=== PATIENT | female | born 1980 | race Caucasian/White ===

== ENCOUNTER → 2016-02-23 | Outpatient (CLI) | payer BC ==
--- NOTE | 2016-02-23 11:06 | US ---
Dear Dr. Billingsley, Thank you for sending your patient, Geetha Sky, to us for a follow-up US to assess interval g rowth. As you know, the patient is a 35 y.o. G2, P1001 at 30 weeks and 0 days with an EDC of 05/03/16 based on LMP and 8 week US. Her is complicated by a fetus with a single umbilical artery. Genetic Screening: Reassuring NIPT results (46XX) The patient denies any uterine contractions, vaginal bleeding, or loss of fluid. She reports excellen t movement. Today, she is without complaints. US FINDINGS: Number of fetuses: 1 Placental location: Anterior fundal, no previa presentation: Cephalic Cervix: 3.8 cm, transabdominally MVP: 3.4 cm Measurements: Biparietal diameter: 78 mm, 31 weeks 3 days Head circumference: 278 mm, 30 weeks 5 days Abdominal circumference: 282 mm, 32 weeks 2 days Femur length: 59 mm, 31 weeks 0 days Humerus length: 51 mm, 29 weeks 5 days Transcerebellar diameter: 38 mm, 31 weeks 0 days Cerebral Lateral Ventricle: 4 mm Cisterna Magna: 5 mm Heart Rate: 153 bpm Average ultrasound age: 31 weeks 3 days Estimated weight: 1801 g weight percentile: 89% Anatomy: anatomy was previously assessed. Today the following structures were visualized and appeared n ormal: lateral ventricles, posterior fossa, 4CH view and outflow tracts, stomach, kidneys, and bladde r. The SVC/IVC, sacral spine, and hands were not previously seen. Today, we were able to visualize the SVC/IVC as normal, but views of the sacral spine and hands remained limited. However, the locks tender ior fossa continues to appear normal which excludes >95% of spine cord defects. IMPRESSION: 1. Growth: The fetus measures appropriate for gestational age, measuring at a normal weight and perc entile. Visualization of the fetus today reveals no overt structural anomalies. There is evidence of normal amniotic fluid, and movement was seen during the examination. 2. Single Umbilical Artery: Today, the fetus is well grown without evidence of growth restriction. Vi ews of the heart and kidneys continue to appear reassuring for the absence of congenital renal or cardiac anomalies. Additionally, these structures were previously cleared at the time of the anato alejandra survey. The patient also had reassuring NIPT results which dramatically decreases the risk of com mon aneuploidies. - No further US assessment is indicated unless new clinical concerns develop Thank you again for sending this patient to see us today. Approximately 15 minutes were spent with th is patient today with 12 minutes of this time spent in direct face to face counseling regarding today 's US findings and our recommendations. Please contact me with any questions at . Ibis Chiang MD Maternal- Medicine
--- NOTE | 2016-02-23 13:52 | US ---
Follow Up Obstetrical Sonography Clinical History: 35-year-old female with a fetus with a known single umbilical artery, presenting fo r follow up of growth parameters. Technique: A curvilinear 5 MHz transducer was used to sonographically evaluate the fetus and placenta . M-mode Doppler is used. Dr. Ibis Chiang was present. Comparison Study: Obstetrical sonography, dated January 05, 2016. LMP: July 28, 2015, indicating an age of 30 weeks 0 days, and an estimated date of delivery of April 182016. Findings: Again, there is single viable intrauterine gestation. The fetus is currently vertex in pres entation. The placenta is anterior-fundal in location, and there is no previa. The maternal cervical length measures 3.8 cm, viewed transabdominally. The amniotic fluid volume is appropriate, with a max imal vertical pocket of 3.4 cm. The heart rate is 153 beats per minute. A anatomic survey has been performed in the past and on today's study, the supratentorial and i nfratentorial structures appear normal. The lateral ventricular diameter is 3.9 mm, and the cisterna magna is 4.9 mm. A four-chambered heart with interventricular septum, ductus arch, and inflow and out flow tracts are identified. The stomach, right and left kidneys, and the urinary bladder are seen. Th e sagittal facial profile appears normal. There is limited assessment of the hands and of the s acral spine. The gender is female (image 51). biometry is as follows: Biparietal diameter is 78 mm, corresponding to an age of 31 weeks 3 days +/- 3 weeks 1 day, which is at the 80th percentile. The head circumference is 280 mm, corresponding to an age of 30 weeks 5 days +/- 3 weeks 0 days, whic h is at the 33rd percentile. The abdominal circumference is 282 mm, corresponding to an age of 32 weeks 2 days +/- 3 weeks 0 days, which is at the 95th percentile. The femur length is 59 mm, corresponding to an age of 31 weeks 0 days +/- 3 weeks 0 days, which is at the 61st percentile. The humeral length is 51 mm, corresponding to an age of 29 weeks 5 days, and the transcerebellar diam eter is 38 mm, corresponding to an age of 31 weeks 0 days +/- 1 week 2 days for a composite gestation al age of 31 weeks 3 days. The estimated weight is 1801 grams +/- 263 grams, which is 4 pounds 0 ounces +/- 9 ounces, whic h is at the 89th percentile. As a point of reference, on the prior study, the fetus was at the 85th p ercentile. The head circumference to abdominal circumference ratio is normal, measuring 0.99. The femur length t o biparietal diameter ratio is 76% which is within normal range, and the femur length to abdominal ci rcumference ratio is also within normal range measuring 21%. Impression: There is a single viable intrauterine gestation with concordant biometry and appropriate interval growth since January 05, 2016. The fetus has a known single umbilical artery, although no o ther overt structural anomaly is seen. Please also refer to Dr. Chiang's separate assessments and specific recommendations for follow up.
== END ==
LOC: FIMAGING 09:21
PROVIDERS: ATTEND Obstetrics & Gynecology
DX: O36.8930 Maternal care for other specified fetal problems, third trimester, not applicable or unspecified (principal); Z3A.30 30 weeks gestation of pregnancy

== ENCOUNTER 2016-05-07 06:10 | Inpatient (IN) | payer BC ==
[2016-05-07] MEDS ORDERED: LR 1,000 ML IV PRN (06:37)
[2016-05-07] MEDS ORDERED: EPSOM SALT 454 GM TP PRN (06:37)
[2016-05-07] MEDS ORDERED: LIDOCAINE 1% 30 ML SDV SC PRN (06:37)
[2016-05-07] MEDS ORDERED: OXYTOCIN/RINGERS LACTATE 1,000 ML IV PRN (06:37)
[2016-05-07] MEDS ORDERED: TERBUTALINE SULFATE 1 MG/ML VIAL IV PRN (06:37)
[2016-05-07] MEDS ORDERED: OLIVE OIL 118 ML BTL MISC PRN (06:37)
[2016-05-07 06:47] LABS: % IMMATURE GRANULYOCYTES 0.2 % (0.0-1.1); ABSOLUTE IMMATURE GRANULOCYTES 0.01 10^3/uL (0.00-0.10); ADD DIFF? NO; ADD MORPH? NO; ADD SCAN? NO; ATYPICAL LYMPHOCYTE FLAG 0 (0-99); FRAGMENT RBC FLAG 0 (0-99); HEMATOCRIT 38.6 % (38.0-47.0); LEFT SHIFT FLG 0 (0-99); LIPEMIA HEMOLYSIS FLAG 80 (0-99); MEAN CELL HEMOGLOBIN 30.9 pg (27.9-34.1); MEAN CELL HEMOGLOBIN CONCENTR. 33.7 g/dL (32.4-36.7); MEAN CELL VOLUME 91.7 fL (81.5-99.8); MEAN PLATELET VOLUME 10.9 fL (8.7-11.7); PLATELET CLUMPS FLAG 10 (0-99); PLATELET COUNT 176 10^3/uL (150-400); RED BLOOD CELL COUNT 4.21 10^6/uL (4.18-5.33); RED CELL DISTRIBUTION WIDTH 12.5 % (11.5-15.2)
[2016-05-07] MEDS ORDERED: MISOPROSTOL 200 MCG TAB ONE (07:22)
[2016-05-07] MEDS ORDERED: AMMONIA AROMATIC 1 EACH AMP IH ONE (07:23)
[2016-05-07] MEDS ORDERED: OXYTOCIN/LR *STANDARD DOSE PROTOCOL IV SCH (07:30)
--- NOTE | 2016-05-07 09:05 | OBPROG ---
OBG Progress Note Assessment/Plan: Assessment: 35 yo @ 40 4/7, IOL for postdates, elective Plan: 05/07/16 09:03 FWB reassuring. GBS neg. Desires epidural. Expect . Subjective: 35 yo @ 40 4/7, IOL for postdates, elective Objective: 05/07/16 06:40 Patient ABO/Rh O NEGATIVE 05/07/16 06:40 114/69 63 37.1 - SVE Dilation (cm): 3 Effacement (%): 50 Station: -1 Current Contraction Pattern: Regular FHR (bpm): 140 FHR Pattern Variability: Moderate FHR Category: 2 Membranes: AROM Amniotic Fluid Color: Clear ICD10 Worksheet Patient Problems: Problems Problem Status Onset Elective induction of labor planned Acute
[2016-05-07] MEDS ORDERED: fentaNYL 2MCG/ML/BUP 0.1% RTU 100 ML BAG EP ONE (09:07)
[2016-05-07] MEDS ORDERED: BUPIVACAINE 0.25% 30 ML SDV ONE (09:07)
[2016-05-07] MEDS ORDERED: PHENYLEPHRINE HCL 100 MCG/ML SYR ONE (09:07)
[2016-05-07] MEDS ORDERED: fentaNYL 100 MCG/2 ML INJ ONE (09:08)
[2016-05-07] MEDS ORDERED: PHENYLEPHRINE HCL 100 MCG/ML SYR IVP PRN (12:43)
[2016-05-07] MEDS ORDERED: ONDANSETRON 4 MG/2 ML VIAL IVP PRN (12:43)
--- NOTE | 2016-05-07 12:46 | POSTANESTH ---
Post Anesthetic Evaluation Cardiovascular Status: Normal, Stable Respiratory Status: Normal, Stable, Similar to Pre-op Cond. Level of Consciousness/Mental Status: Can Participate in Eval, Alert and Oriented Pain Control: Adequate, Prn Tx Ordered Nausea/Vomiting Control: Adequate, Prn Tx Ordered Complications Possibly Related to Anesthesia: None Noted (Tolerated well, stable , comfortable.)
--- NOTE | 2016-05-07 12:50 | PREANESOB ---
Obstetric Pre-Anesthesia Info - General Info Proposed Procedure: Labor and delivery with pitocin. : 2 Para: 1 WBD: 40 - Info Status: Full Term Monitors: External FHR Baseline (bpm): 135 FHR Pattern: Reassuring - Labor Status Cervical Dilation per last OB SVE: 3 Station per last OB SVE: -1 Amniotic Fluid Color: Clear Pitocin: In Use Indications for Labor Analgesia: Induction of Labor, Pain Control Labor Epidural: Proposed Anesthesia ROS: Prior labor epidural. Allergies/Adverse Reactions: Allergy/AdvReac Type Severity Reaction Status Date / Time shellfish derived Allergy Verified 05/07/16 06:39 Home Medications: Medication Instructions Recorded 1 tab PO DAILY 05/07/16 Visit Medications: Generic Name Dose Route Start Last Admin Trade Name Freq PRN Reason Stop Dose Admin Diphenhydramine HCl 25 - 50 mg 05/07/16 12:43 Benadryl Injection IVP 11/03/16 12:42 Q6HRS PRN Itching Lactated Ringer's 1,000 mls @ 0 mls/hr 05/07/16 06:37 05/07/16 06:45 Lr IV 11/03/16 06:36 1,000 mls PRN PRN Administration SEE PROTOCOL CONDITIONS Protocol Per Protocol Oxytocin/Lactated Ringer's 1,000 mls @ 150 mls/hr 05/07/16 06:37 Pitocin 20 Units/Lr (Premix) IV PRN PRN Post- bleeding Oxytocin/Lactated Ringer's 500 mls @ 0 mls/hr 05/07/16 07:30 05/07/16 07:47 Pitocin 30 Units/Lr (Premix) IV 11/03/16 07:29 500 mls CONT CATHY Administration Protocol Per Protocol Fentanyl/Bupivacaine HCl 100 mls @ 0 mls/hr 05/07/16 13:00 Fentanyl/Bupivacaine/Ns 2 Mcg/Ml 0.1% (Premix EP 05/17/16 12:59 CONT CATHY Protocol As Directed Lactated Ringer's 500 mls @ 0 mls/hr 05/07/16 13:00 Lr IV 11/03/16 12:59 CONT CATHY As Directed Ibuprofen 600 mg 05/07/16 06:37 Motrin PO 11/03/16 06:36 Q6HRS PRN post , inflammation Lidocaine HCl 30 ml 05/07/16 06:37 Lidocaine Hcl 1% SC 11/03/16 06:36 ONCE PRN Episiotomy Magnesium Sulfate 454 gm 05/07/16 06:37 Epsom Salt TP 11/03/16 06:36 PRN PRN perineal discomfort Fleming Oil 118 ml 05/07/16 06:37 Sweet Oil MISC 11/03/16 06:36 ONCE PRN preneal massage Ondansetron HCl 4 mg 05/07/16 12:43 Zofran IVP 11/03/16 12:42 Q4HRS PRN Nausea/Vomiting, Can't Take PO Phenylephrine HCl 100 mcg 05/07/16 12:43 Travon-Synephrine IVP 11/03/16 12:42 .Q2M PRN Hypotension Terbutaline Sulfate 0.25 mg 05/07/16 06:37 Brethine IV 11/03/16 06:36 ONCE PRN Tachysystole Discontinued Medications Generic Name Dose Route Start Last Admin Trade Name Freq PRN Reason Stop Dose Admin Ammonia (Aromatic Spirit) Confirm 05/07/16 07:23 Ammonia Aromatic Administered 05/07/16 07:24 Dose 1 each IH .STK-MED ONE Bupivacaine HCl Confirm 05/07/16 09:07 Sensorcaine 0.25% Sdv Administered 05/07/16 09:08 Dose 30 ml .ROUTE .STK-MED ONE Fentanyl Confirm 05/07/16 09:08 Sublimaze Administered 05/07/16 09:09 Dose 100 mcg .ROUTE .STK-MED ONE Fentanyl/Bupivacaine HCl Confirm 05/07/16 09:07 Fentanyl/Bupivacaine/Ns 2 Mcg/Ml 0.1% (Premix Administered 05/07/16 09:08 Dose 100 ml EP .STK-MED ONE Misoprostol Confirm 05/07/16 07:22 Cytotec Administered 05/07/16 07:23 Dose 1,000 mcg .ROUTE .STK-MED ONE Phenylephrine HCl Confirm 05/07/16 09:07 Travon-Synephrine Administered 05/07/16 09:08 Dose 1,000 mcg .ROUTE .STK-MED ONE - Anesthesia History Response to Local Anesthetics: Normal Anesthesia & Operative History: No Prior Problems - Social History Substance Use/Abuse: Denies - Focused Exam Blood Pressure: 114/69 Heart Rate: 78 Respiratory Rate: 18 Height/Weight (Nursing): Height 175.26 cm Weight 83.007 kg Physical Exam: Within normal limits. ASA Status: II Labs: 05/07/16 06:40 Patient ABO/Rh O NEGATIVE 05/07/16 06:40 - Plan Anesthetic Plan: CSE Consent Signed and on Chart: Yes Patient/Guardian Understands and Agrees to Plan: Yes
[2016-05-07] MEDS ORDERED: fentaNYL 2MCG/ML/BUP 0.1% RTU 100 ML EP SCH (13:00)
[2016-05-07] MEDS ORDERED: LR 500 ML IV SCH (13:00)
[2016-05-07] MEDS ORDERED: CEFAZOLIN 2 GM/DEXTROSE/100 ML BAG IV ONE (13:23)
[2016-05-07] MEDS: ceFAZolin 2 GM/DEXTROSE 100 ML IV SCH ×2 (13:40→22:19)
[2016-05-07] MEDS: IBUPROFEN 600 MG TAB PO PRN ×2 (14:02→19:46)
[2016-05-07] MEDS ORDERED: HYDROCORTISONE 0.5% CREAM TP PRN (18:06)
[2016-05-07] MEDS ORDERED: HYDROCODONE/APAP 5/325 TAB PO PRN (18:06)
[2016-05-07] MEDS ORDERED: SIMETHICONE 80 MG TAB CHEW PO PRN (18:06)
--- NOTE | 2016-05-07 18:10 | OBPROC ---
- Labor and Delivery Onset of Contractions Date: 05/07/16 Onset of Contractions Time: 08:00 Onset of Contractions Type: Induced Rupture of Membranes Date: 05/07/16 Rupture of Membranes Time: 09:00 Rupture of Membranes Type: Artificial Amniotic Fluid Color: Clear Dilation Complete Time: 12:30 Delivery Type: Spontaneous Placenta Delivery Date: 05/07/16 Episiotomy/Laceration: 2nd Degree Repair: 3-0, Vicryl EBL: 300 ml Complications: Other (Specify) (retained placenta requiring manual extraction, US confirms no retained POCs) - Medications Anesthesia: Epidural - Info A Delivery Date: 05/07/16 Sex of Infant: Female Score (1 Min): 8 Score (5 Min): 9
[2016-05-07] MEDS: DOCUSATE SODIUM 100 MG CAP PO PRN (19:46)
[2016-05-08] MEDS: IBUPROFEN 600 MG TAB PO PRN ×4 (05:28→23:34)
[2016-05-08] MEDS: ceFAZolin 2 GM/DEXTROSE 100 ML IV SCH (06:02)
--- NOTE | 2016-05-08 07:40 | SOAPPROG ---
SOAP Progress Note Assessment/Plan: Assessment: 35 y.o. s/p PPD#1 recovering well with good pain control. well. Good support system. Plan: Routine care and orders. consult PRN. Anticipate discharge tomorrow. 05/08/16 07:37 Subjective: Reports doing well with good pain control. infant well. Minimal vaginal bleeding. Has been out of bed and ambulating without vertigo. Eating and drinking well without nausea or vomiting. Appropriate mood with good support system. Objective: Vital Signs Temp Pulse Resp BP Pulse Ox 36.2 C 63 18 111/68 96 05/07/16 19:35 05/07/16 19:35 05/07/16 19:35 05/07/16 19:35 05/07/16 19:35 Laboratory Results 05/07/16 06:40 05/07/16 05/08/16 05/09/16 05:59 05:59 05:59 Output Total 300 Balance -300 - Time Spent With Patient Time Spent With Patient: 20 minutes - Pending Discharge Pending Discharge Within 24 Hours: Yes Pending Discharge Date: 05/09/16 Pending Discharge Time: 11:00 Physical Exam - Physical Exam General Appearance: WD/WN, alert, no apparent distress EENT: normal ENT inspection Neck: non-tender, full range of motion, normal inspection Respiratory: lungs clear, normal breath sounds Cardiac/Chest: regular rate, rhythm Abdomen: non-tender, soft Pelvic Exam: normal external exam Rectal: deferred Back: Normal inspection Skin: normal color, warm/dry Extremities: normal range of motion, non-tender Neuro/Psych: alert, normal mood/affect, oriented x 3 ICD10 Worksheet Patient Problems: Problems Problem Status Onset Elective induction of labor planned Acute
[2016-05-08] MEDS: DOCUSATE SODIUM 100 MG CAP PO PRN ×2 (08:47→23:34)
[2016-05-08 11:27] VITALS: RESP 16
[2016-05-09] MEDS: IBUPROFEN 600 MG TAB PO PRN ×2 (05:24→12:05)
[2016-05-09 07:53] VITALS: BP 106/65; PULSE 60; TEMP 97.8; O2SAT 94
--- NOTE | 2016-05-09 09:34 | OBGCSDC ---
General Delivery Information - General Info : 2 Para: 2 Labs: Patient ABO/Rh O NEGATIVE 05/07/16 15:50 Hct 38.6 % (38.0-47.0) 05/07/16 06:40 - Info Infant A Sex of : Female Score (1 Min): 8 Score (5 Min): 9 Vaginal - Diagnosis Labor: Induced Rupture of Membranes Type: Artificial Amniotic Fluid Color: Clear Repair: 3-0, Vicryl Complications: Other (Specify) (retained placenta requiring manual extraction, US confirms no retained POCs) - Operations/Procedures Delivery Type: Spontaneous - Hospital Course Antepartum: Scheduled elective induction Intrapartum: : Routine pp care. Pain controlled with motrin. going well. Appropriate lochia. Rh neg, s/p Rhogam. Rub immune. s/p tdap and flu vaccines - Delivery EBL: 300 ml Anesthesia: Epidural Discharge Information - Discharge Information Discharge Medications: Ibuprofen, Other (Specify) (Colace) Condition: Good Instruction/Follow Up: Six Weeks Discharge Physician/CNM: Kellie Kruse
== END 2016-05-09 12:30 | disposition home or self-care (01) | DRG 767 ==
LOC: FLD 06:10 → FOB 15:52
PROVIDERS: ADMIT Midwife; ATTEND Midwife
PROC: 3E033VJ Introduction of Other Hormone into Peripheral Vein, Percutaneous Approach (ICD-10-PCS; principal; 2016-05-07)
PROC: 10E0XZZ Delivery of Products of Conception, External Approach (ICD-10-PCS; principal; 2016-05-07)
PROC: 10D17ZZ Extraction of Products of Conception, Retained, Via Natural or Artificial Opening (ICD-10-PCS; principal; 2016-05-07)
PROC: 0KQM0ZZ Repair Perineum Muscle, Open Approach (ICD-10-PCS; principal; 2016-05-07)
PROC: 10907ZC Drainage of Amniotic Fluid, Therapeutic from Products of Conception, Via Natural or Artificial Opening (ICD-10-PCS; principal; 2016-05-07)
DX: O48.0 Post-term pregnancy (principal); O70.1 Second degree perineal laceration during delivery; O73.0 Retained placenta without hemorrhage; Z3A.40 40 weeks gestation of pregnancy; Z37.0 Single live birth
CPT/HCPCS: J0690; J2370; J2590; J3010; J3105

== ENCOUNTER → 2016-06-27 | Outpatient (CLI) | payer BC | LOC: BMCIMAGING 15:54 | PROVIDERS: ATTEND Obstetrics & Gynecology | DX: N93.9 Abnormal uterine and vaginal bleeding, unspecified (principal) ==

== ENCOUNTER 2016-07-10 16:17 | Emergency (ER) | payer BC ==
[2016-07-10 16:39] VITALS: RESP 16
--- NOTE | 2016-07-10 16:52 | EDPHY ---
HPI/HX/ROS/PE/MDM Narrative: CHIEF COMPLAINT: Abdominal pain HPI: This patient is a 35-year-old nine-weeks post female who presents to the Emergency Department complaining of acute onset abdominal pain beginning this afternoon. On Saturday, she awoke with acute vomiting which persisted throughout the day, improving by Saturday morning. Yesterday, she felt nauseated but did not vomit. Today, after eating lunch, she began to experience moderate, intermittent abdominal pain which she describes as periumbilical and similar to contractions. She reports one loose bowel movement earlier today. She describes associated chills but denies fever or additional complaints. She had a pelvic ultrasound on 06/27 for excessive vaginal bleeding which was normal at that time. She was started on estrogen following that exam. REVIEW OF SYSTEMS: Aside from elements discussed in the HPI, a comprehensive 10-point review of systems was reviewed and is negative. PMH: Denies. SOCIAL HISTORY: Mother of two. PHYSICAL EXAM: General:Patient is alert, in no acute distress. ENT:Eyes are normal to inspection. ENT inspection normal. Neck: Normal inspection. Full range of motion. Respiratory:No respiratory distress. Breath sounds normal bilaterally. Cardiovascular: Regular rate and rhythm. Strong peripheral pulses. Normal cap refill. Abdomen:The abdomen is nontender to palpation. There are no peritoneal signs. There are normal bowel sounds. Back: Normal to inspection. No tenderness to palpation. Skin: Normal color. No rash. Warm and dry. Extremities: Normal appearance. Full range of motion. Neuro: Oriented x3. Normal motor function. Normal sensory function. ED Course: Normally healthy 9-weeks post- 35-year-old female presents with complaint of periumbilical intermittent abdominal pain presenting this afternoon following two days of nausea and vomiting. She is alert and well-appearing at time of presentation. Her abdomen is non-tender. She did have a pelvic/renal US two weeks [employer] for vaginal bleeding which was normal at that time. Will proceed with labs, UA, abdominal x-ray, and pelvic US. The patient declines pain medication at this time. CBC and chemistries obtained and are within normal limits. UA is negative for UTI. 2015: US is normal per Dr. Hernández, radiologist. I discussed lab and imaging results with the patient. She will be discharged home in good condition with instructions to follow-up with her PCP for further evaluation and customary return precautions. MDM: On re-evaluation at 8:00 p.m., the patient states she had a bowel movement and her pain is largely resolved. Her x-ray and ultrasound are unremarkable. Her blood work including CBC is completely unremarkable. I had extensive discussion with her regarding our workup and offered her CT scan of the abdomen and pelvis to rule out appendicitis or other acute abdominal process, despite the fact that I think the likelihood of this is very low. The patient is comfortable declining this test and would like to go home. We discussed strict return precautions. She understands that I am unable to diagnose potentially life- threatening illness without further testing. - Data Points Imaging Results: Imaging Impressions Abdomen X-Ray 07/10/16 17:08 Impression: Air distended colon with air-fluid levels. No evidence for free intraperitoneal air. No evidence for small bowel obstruction. Pelvic/Renal Ultrasound 07/10/16 17:41 Impression: Normal pelvic ultrasound. Findings discussed with Wesley Salvador MD 07/10/2016 at 20:13. Imaging: Discussed imaging studies w/ call box wirer Radiologist, I viewed and interpreted images myself Laboratory Results: Laboratory Results 07/10/16 16:50 07/10/16 16:50 07/10/16 07/10/16 07/10/16 17:15 16:50 16:50 WBC 6.88 10^3/uL 10^3/uL (3.80-9.50) RBC 4.30 10^6/uL 10^6/uL (4.18-5.33) Hgb 13.1 g/dL g/dL (12.6-16.3) Hct 39.7 % % (38.0-47.0) MCV 92.3 fL fL (81.5-99.8) MCH 30.5 pg pg (27.9-34.1) MCHC 33.0 g/dL g/dL (32.4-36.7) RDW 12.3 % % (11.5-15.2) Plt Count 192 10^3/uL 10^3/uL (150-400) MPV 10.2 fL fL (8.7-11.7) Neut % (Auto) 70.2 % % (39.3-74.2) Lymph % (Auto) 20.1 % % (15.0-45.0) [place] % (Auto) 8.4 % % (4.5-13.0) Eos % (Auto) 0.9 % % (0.6-7.6) Baso % (Auto) 0.3 % % (0.3-1.7) Nucleat RBC Rel Count 0.0 % % (0.0-0.2) Absolute Neuts (auto) 4.83 10^3/uL 10^3/uL (1.70-6.50) Absolute Lymphs (auto) 1.38 10^3/uL 10^3/uL (1.00-3.00) Absolute Monos (auto) 0.58 10^3/uL 10^3/uL (0.30-0.80) Absolute Eos (auto) 0.06 10^3/uL 10^3/uL (0.03-0.40) Absolute Basos (auto) 0.02 10^3/uL 10^3/uL (0.02-0.10) Absolute Nucleated RBC 0.00 10^3/uL 10^3/uL (0-0.01) Immature Gran % 0.1 % % (0.0-1.1) Immature Gran # 0.01 10^3/uL 10^3/uL (0.00-0.10) Sodium 141 mEq/L mEq/L (134-144) Potassium 3.7 mEq/L mEq/L (3.5-5.2) Chloride 106 mEq/L mEq/L (97-110) Carbon Dioxide 23 mEq/l mEq/l (22-31) Anion Gap 12 mEq/L mEq/L (8-16) BUN 15 mg/dL mg/dL (7-23) Creatinine 0.6 mg/dL mg/dL (0.6-1.0) Estimated GFR > 60 Glucose 99 mg/dL mg/dL (70-100) Calcium 9.3 mg/dL mg/dL (8.5-10.4) Urine Color YELLOW Urine Appearance CLEAR Urine pH 7.0 (5.0-7.5) Ur Specific [place] 1.014 (1.002-1.030) Urine Protein NEGATIVE (NEGATIVE) Urine Ketones NEGATIVE (NEGATIVE) Urine Blood NEGATIVE (NEGATIVE) Urine Nitrate NEGATIVE (NEGATIVE) Urine Bilirubin NEGATIVE (NEGATIVE) Urine Urobilinogen NEGATIVE EU EU (0.2-1.0) Ur Leukocyte Esterase TRACE H (NEGATIVE) Urine RBC 1-3 /hpf /hpf (0-3) Urine WBC 1-3 /hpf /hpf (0-3) Ur Epithelial Cells TRACE /lpf /lpf (NONE-1+) Urine Mucus TRACE /lpf /lpf (NONE-1+) Urine Glucose NEGATIVE (NEGATIVE) General Time Seen by Provider: 07/10/16 16:35 Initial Vital Signs: Initial Vital Signs Temperature (C) 36.7 C 07/10/16 16:37 Heart Rate 75 07/10/16 16:37 Respiratory Rate 16 07/10/16 16:37 Blood Pressure 121/67 H 07/10/16 16:37 O2 Sat (%) 98 07/10/16 16:37 O2 Delivery Mode Room Air Allergies/Adverse Reactions: shellfish derived Allergy (Verified 07/10/16 16:36) Home Medications: Medication Instructions Recorded Cherellemadinajassi 07/10/16 Departure - Departure Disposition: Home, Routine, Self-Care Clinical Impression: Abdominal pain Qualifiers: Abdominal location: periumbilical Qualified Code(s): R10.33 - Periumbilical pain Condition: Good Instructions: Abdominal Pain (ED) Additional Instructions: 1. Follow-up with your primary care provider if your symptoms do not improve within the next 2-3 days. If you do not have a PCP, we have referred you to our on-call provider. 2. Return to the Emergency Department if you experience worsening abdominal pain , uncontrollable vomiting, blood in your stool or vomit, high fever, or for other serious concerns. Referrals: Tabitha Ross MD [Medical Doctor] - As per Instructions Report Scribed for: Wesley Salvador Report Scribed by: Claudine Hart Date of Report: 07/10/16 Time of Report: 16:52 Physician Review and Approval Statement: Portions of this note were transcribed by an ED scribe. I personally performed the history, physical exam, and medical decision making; and confirm the accuracy of the information in the transcribed note.
[2016-07-10 17:04] LABS: % IMMATURE GRANULYOCYTES 0.1 % (0.0-1.1); ABSOLUTE IMMATURE GRANULOCYTES 0.01 10^3/uL (0.00-0.10); ADD DIFF? NO; ADD MORPH? NO; ADD SCAN? NO; ATYPICAL LYMPHOCYTE FLAG 40 (0-99); FRAGMENT RBC FLAG 0 (0-99); HEMATOCRIT 39.7 % (38.0-47.0); HEMOGLOBIN 13.1 g/dL (12.6-16.3); LEFT SHIFT FLG 30 (0-99); LIPEMIA HEMOLYSIS FLAG 80 (0-99); MEAN CELL HEMOGLOBIN 30.5 pg (27.9-34.1); MEAN CELL VOLUME 92.3 fL (81.5-99.8); MEAN PLATELET VOLUME 10.2 fL (8.7-11.7); PLATELET CLUMPS FLAG 0 (0-99); PLATELET COUNT 192 10^3/uL (150-400); RED CELL DISTRIBUTION WIDTH 12.3 % (11.5-15.2)
[2016-07-10 17:22] LABS: ANION GAP 12 mEq/L (8-16); CALCIUM 9.3 mg/dL (8.5-10.4); CARBON DIOXIDE 23 mEq/l (22-31); CHLORIDE 106 mEq/L (97-110); CREATININE 0.6 mg/dL (0.6-1.0); GLOMERULAR FILTRATION RATE > 60; GLUCOSE 99 mg/dL (70-100); POTASSIUM 3.7 mEq/L (3.5-5.2); SODIUM 141 mEq/L (134-144)
[2016-07-10 17:41] LABS: COLOR YELLOW; LEUKOCYTE ESTERASE,URINE TRACE (NEGATIVE); NITRITE,URINE NEGATIVE (NEGATIVE)
[2016-07-10 17:48] LABS: MUCUS TRACE /lpf (NONE-1+)
[2016-07-10 18:48] VITALS: TEMP 98.4
[2016-07-10 20:46] VITALS: BP 92/60; PULSE 68; O2SAT 98
== END 2016-07-10 20:46 | disposition home or self-care (01) ==
DX: R10.33 Periumbilical pain (principal)